=== PATIENT | female | born 1985 | race Asian ===

== ENCOUNTER 2016-12-01 02:49 | Inpatient (IN) | payer SELFPAY ==
[~2016-12-01] VITALS: Ht 167.6 cm; Wt 77.1 kg
[2016-12-01] MEDS ORDERED: LR 500 ML IV ONE (03:25)
[2016-12-01] MEDS ORDERED: OXYTOCIN/NORMAL SALINE 1,000 ML IV SCH ×2 (03:25→06:46)
[2016-12-01] MEDS ORDERED: LR 1,000 ML IV ONE (03:25)
[2016-12-01] MEDS ORDERED: LR 1,000 ML IV SCH (03:25)
[2016-12-01] MEDS ORDERED: NALBUPHINE HCL 10 MG/ML AMP IVP PRN (03:30)
[2016-12-01] MEDS ORDERED: TERBUTALINE SULFATE 1 MG/ML VIAL SUBCUT ONE (03:30)
[2016-12-01 04:14] LABS: BASOPHILS % (AUTO) 0.3 % (0.0-2.0); EOSINOPHILS # (AUTO) 0.1 K/uL (0.0-0.4); EOSINOPHILS % (AUTO) 0.7 % (0.0-4.0); HEMATOCRIT 37.1 % (36-48); HEMOGLOBIN 12.5 g/dL (12.0-16.0); LYMPHOCYTES # (AUTO) 1.8 K/uL (1.0-5.5); LYMPHOCYTES % (AUTO) 14.9 % (20.5-51.5); MEAN CORPUSCULAR HEMOGLOBIN 31 pg (27-31); MEAN CORPUSCULAR HGB CONC 34 % (32-36); MEAN CORPUSCULAR VOLUME 92 fL (79.0-98.0); MONOCYTES # (AUTO) 0.5 K/uL (0.0-1.0); MONOCYTES % (AUTO) 4.2 % (1.7-9.3); NEUTROPHILS # (AUTO) 9.7 K/uL (1.8-7.7); NEUTROPHILS % (AUTO) 79.9 % (40.0-70.0); PLATELET COUNT (AUTO) 176 K/uL (130-430); RED BLOOD CELL COUNT(AUTO) 4.02 MIL/uL (4.2-6.2); RED CELL DISTRIBUTION WIDTH 13.9 % (9.0-15.0); WHITE BLOOD COUNT (AUTO) 12.1 K/uL (4.8-10.8)
[2016-12-01] MEDS ORDERED: OXYTOCIN/NORMAL SALINE 1,000 ML IV ONE (06:46)
[2016-12-01] MEDS ORDERED: HYDROCORTISONE 0.5%, 28.35 GM TOPICAL CREAM TP PRN (07:00)
[2016-12-01] MEDS ORDERED: DERMOPLAST SPRAY TP PRN (07:00)
[2016-12-01] MEDS ORDERED: MEASLES,MUMPS&RUBELLA VACC/PF 12500 UNIT/0.5 ML VIAL SUBQ PRN (07:00)
[2016-12-01] MEDS ORDERED: LANOLIN 7 GM OINT. TP PRN (07:00)
[2016-12-01] MEDS ORDERED: GLYCERIN/WITCH HAZEL (TUCKS PADS) TP PRN (07:00)
[2016-12-01] MEDS ORDERED: SENNOSIDES/DOCUSATE SODIUM 1 TAB TABLET(SENOKOT-S) PO PRN (07:00)
[2016-12-01] MEDS ORDERED: HYDROcodone/ACETAMIN 5-325 MG TAB (NORCO/ VICODIN) PO PRN ×2 (07:00)
[2016-12-01] MEDS ORDERED: RHO(D) IMMUNE GLOBULIN/MALTOSE 1500 UNITS/1.3 ML (WINHRO) IM PRN (07:00)
[2016-12-01] MEDS ORDERED: METHYLERGONOVINE MALEATE 0.2 MG TABLET PO PRN (07:00)
[2016-12-01] MEDS ORDERED: TEMAZEPAM 15 MG CAPSULE PO PRN (07:00)
[2016-12-01] MEDS ORDERED: ACETAMINOPHEN 325 MG TABLET PO PRN (07:00)
[2016-12-01] MEDS ORDERED: ANUSOL 1 EA SUPP.RECT (PREPARATION H) RC PRN (07:00)
[2016-12-01] MEDS: IBUPROFEN 600 MG TABLET PO SCH ×3 (12:00→23:58)
[2016-12-01] MEDS ORDERED: LIDOCAINE PF 1% 30ML(POUR BTL) INJ ONE (15:00)
[2016-12-01] MEDS: DOCUSATE SODIUM 100 MG CAPSULE PO PRN (23:58)
[2016-12-02 05:56] LABS: HEMATOCRIT 33.7 % (36-48); HEMOGLOBIN 11.3 g/dL (12.0-16.0)
[2016-12-02] MEDS: IBUPROFEN 600 MG TABLET PO SCH ×2 (06:13→11:49)
[2016-12-02] MEDS: DOCUSATE SODIUM 100 MG CAPSULE PO PRN (11:49)
== END 2016-12-02 14:45 | disposition home or self-care (01) | DRG 775 ==
LOC: SPU 02:49
PROVIDERS: ADMIT Obstetrics & Gynecology; ATTEND Obstetrics & Gynecology
PROC: 10D07Z6 Extraction of Products of Conception, Vacuum, Via Natural or Artificial Opening (ICD-10-PCS; principal; 2016-12-01)
PROC: 0W8NXZZ Division of Female Perineum, External Approach (ICD-10-PCS; 2016-12-01)
PROC: 3E0234Z Introduction of Serum, Toxoid and Vaccine into Muscle, Percutaneous Approach (ICD-10-PCS; 2016-12-01)
DX: O48.0 Post-term pregnancy (principal); O69.81X0 Labor and delivery complicated by cord around neck, without compression, not applicable or unspecified; O76 Abnormality in fetal heart rate and rhythm complicating labor and delivery; Z37.0 Single live birth; Z3A.40 40 weeks gestation of pregnancy; Z23 Encounter for immunization
CPT/HCPCS: 36415; 81002-TC; 85018-TC; 85025; 86592; 86886; 86900; 86901; J2001; J2590